=== PATIENT | female | born 2000 | race Caucasian/White ===

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

== ENCOUNTER 2022-02-08 04:10 | Emergency (ER) | payer OTHER ==
--- OUTSIDE RECORDS SUMMARY | 2022-02-08 04:13 | XMS REPORT | Continuity of Care Document ---
:2000 Author Organization [facility] t Address [address] [place] [address] Care Team Providers Name Role Phone Pcp, Patient Does Not Have A Primary Care Physician [phone] [id number] LYNNETTE LAROSE Attending Clinician Unavailable Lab, Ang - Db Attending Clinician Unavailable Lynnette Larose MD Attending Clinician Doctor Unassigned, [place] Attending Clinician Unavailable RENATA GUTIERREZ Attending Clinician Unavailable Pcp, Patient Does Not Have A Attending Clinician [phone] DEBO GARCIA Attending Clinician Unavailable LYNNETTE LAROSE Admitting Clinician Unavailable Payers Payer Name Policy Type Policy Number Effective Date Expiration Date [facility] [id number] 2021 PPO 00:00:00 Problems Condition Condition Condition Status Onset Resolution Last Treating Co mments Source Name Details Category Date Date Treatment Clinician Date Pelvic Pelvic Disease Active 2021-02 Univers pain pain 0-12 ity of 00:00: [address] Dysmenorrh Dysmenorrh Disease Active 2021-02 U nivers ea ea 0-12 ity of 00:00: [address] No known No known Disease Unive rs active active ity of problems problems [facility] Allergies, Adverse Reactions, Alerts Allergy Allergy Status Severity Reaction(s) Onset Inactive Treating Comm ents Source Name Type Date Date Clinician NO KNOWN Drug Active Univers ALLERGIE Class ity of S [facility] Social History Social Habit Start Date Stop Date Quantity Comments Source History [facility] University o f Alcohol Frequency [facility] History SDOH University o f Alcohol Std [place] [facility] History SDOH University o f Alcohol Binge [place] [facility] Exposure to 2022-01-19 2022-01-29 Not sure University [facility]-CoV-2 00:00:00 11:50:00 [place] [facility] (event[facility] Alcohol Comment 2021-07-17 2021-07-17 1-2x a month Univers ity of 00:00:00 00:00:00 [place] [facility] Alcohol intake 2017-12-16 2017-12-[address] [facility] 00:[facility] 00:00:00 non-drinker of Medical Ce nter alcohol (finding) Tobacco use and 2017-12-04 2017-12-[address] [facility] exposure 00[facility]00:00 00:00:00 [facility] Sex Assigned At [address] [facility] 00:00[facility]00 00[facility]00 [facility] Center Smoking Status Start Date Stop Date Source Never smoked tobacco [facility] Medications Ordered Filled Start Stop Current Ordering Indication Dosage Frequency Signature Comments Components Source Medication Medication Date Date Medication? Clinician (SIG) Name Name escitalopra 2021-02 Yes 20mg Take 20 mg Univers m oxalate 0-11 by mouth ity of 20 mg 09:32: in the [place] tablet 12 morning. Medical Branch escitalopra 2021-02 Yes 20mg Take 20 mg Univers m oxalate 0-11 by mouth ity of 20 mg 09:32: in the [place] tablet 12 morning. Medical Branch escitalopra 2021-02 Yes 20mg Take 20 mg Univers m oxalate 0-11 by mouth ity of 20 mg 09:32: in the [place] tablet 12 morning. Medical Branch escitalopra 2021-02 Yes 20mg Take 20 mg Univers m oxalate 0-11 by mouth ity of 20 mg 09:32: in the [place] tablet 12 morning. Medical Branch escitalopra 2021-02 Yes 20mg Take 20 mg Univers m oxalate 0-11 by mouth ity of 20 mg 09:32: in the [place] tablet 12 morning. Medical Branch escitalopra 2021-02 Yes 20mg Take 20 mg Univers m oxalate 0-11 by mouth ity of 20 mg 09:32: in the [place] tablet 12 morning. Medical Branch escitalopra 2021-02- 20mg Take 20 mg Univers m oxalate 0-11 10-11 by mouth ity o f 10 mg 09:32: 00:00 in the [place] tablet 12 :00 morning. Medical Branch escitalopra 2021-02- No 20mg Take 20 mg Univers m oxalate 0-11 10-11 by mouth ity o f 10 mg 09:32: 00:00 in the [place] tablet 12 :00 morning. Medical Branch escitalopra 2021-0 Yes 10mg Take 10 mg Univers m oxalate 2-25 by mouth ity of 10 mg 19:03: daily. [place] tablet 48 [facility] escitalopra 0 Yes 10mg Take 10 mg Univers m oxalate 2-25 by mouth ity of 10 mg 19:03: daily. [place] tablet 48 [facility] escitalopra Yes 10mg Take 10 mg Univers m oxalate 2-25 by mouth ity of 10 mg 19:03: daily. [place] tablet 48 [facility] escitalopra 0 Yes 10mg Take 10 mg Univers m oxalate 2-25 by mouth ity of 10 mg 19:03: daily. [place] tablet 48 [facility] escitalopra 0 Yes 10mg Take 10 mg Univers m oxalate 2-25 by mouth ity of 10 mg 19:03: daily. [place] tablet 48 [facility] escitalopra 0 Yes 10mg Take 10 mg Univers m oxalate 2-25 by mouth ity of 10 mg 19:03: daily. [address] Vital Signs Vital Name Observation Time Observation Value Comments Source Systolic blood 2021-11-27 14:29:00 112 mm[Hg] Univer sity of pressure [facility] Diastolic blood 2021-11-27 14:29:00 77 mm[Hg] Unive rsity of pressure [facility] Heart rate 2021-11-27 14:29:00 81 /min [facility] Body temperature 2021-11-27 14:29:00 36.72 [facility] Respiratory rate 2021-11-27 14:29:00 16 /min [facility] Body height 2021-11-27 14:29:00 162.6 cm Universi ty [facility] Body weight 2021-11-27 14:29:00 74.163 kg [facility] BMI 2021-11-27 14:29:00 28.06 kg/m2 Universi ty of [facility] Body mass index 2021-11-27 14:29:00 90.74 % Unive rsity of (BMI) [Percentile] [place] [facility] ical Per age and sex Branch Oxygen saturation in 2021-11-27 14:29:00 98 /min [facility] Arterial blood by [facility] Pulse oximetry Branch Systolic blood 2021-07-17 15:51:00 112 mm[Hg] Univer sity of pressure [facility] Diastolic blood 2021-07-17 15:51:00 75 mm[Hg] Unive rsity of pressure [facility] Heart rate 2021-07-17 15:51:00 78 /min Universi ty of [facility] Body temperature 2021-07-17 15:51:00 36.89 Minnie [facility] Respiratory rate 2021-07-17 15:51:00 18 /min [facility] Body height 2021-07-17 15:51:00 162.6 cm Universi ty [facility] Body weight 2021-07-17 15:51:00 70.308 kg Universi ty of [facility] BMI 2021-07-17 15:51:00 26.61 kg/m2 Universi ty [facility] Body mass index 2021-07-17 15:51:00 87.40 % Unive rsity of (BMI) [Percentile] [place] [facility] ical Per age and sex Branch Procedures Procedure Date / Time Performing Clinician Source Performed EXTERNAL PROVIDER 2021-09-28 05:01:00 Doctor Unassigned, No [facility] RECORDS Name Medical Branch US PELVIS COMPLETE WITH 2021-08-01 20:09:36 Lynnette Larose [facility] TRANSVAGINAL [facility] ASSIGNMENT OF BENEFITS 2021-08-01 19:09:06 Doctor Unassigned, No [facility] Encounters Start End Encounter Admission Attending Care Care Encounter Source Date/Time Date/Time Type Type Clinicians Facility Department ID 2022-02-06 2022-02-06 Outpatient Gerhard LAROSE [facility] [id number] Univers 13:30:00 13:30:00 LYNNETTE matta of [facility] 2022-02-01 2022-02-01 Outpatient R AD, [facility] [id number] Univers 14:30:00 14:30:00 LYNNETTE ehsan [facility] 2022-01-29 2022-01-29 [facility], Ang - Db [facility] 1.2.840.1 [id number] Univers 12:00:00 12:15:00 Visit Adum, Lynnette BANEGAS 350.1.13.10 ity [facility] [id number] Arya as ?BLEA [id number] [address] OFFICE [facility] 2022-01-29 2022-01-29 Outpatient R AD, [facility] [id number] Univers 12:00:00 12:00:00 LYNNETTE matta [facility] 2022-01-29 2022-01-29 [facility] [id number] Univers 00:00:00 00:00:00 (Out) Lynnette BANEGAS 350.1.13.10 i ty [facility] 4.2.7.2.686 Arya as ?BLEA [id number] [address] OFFICE [facility] 2022-01-29 2022-01-29 Telephone [facility] [id number] Univers 00:00:00 00:00:00 Lynnette CARDENAS 350.1.13.10 i ty [id number] [id number] [address] 2022-01-28 2022-01-28 Telephone [facility] 1.2.840.114 [id number] Univers 00:00:00 00:00:00 Lynnette CARDENAS 350.1.13.10 i [place] [id number] [address] 2021-11-27 2021-11-27 Outpatient R ADUM, [facility] [id number] Univers 09:00:00 10:11:53 LYNNETTE matta [facility] 2021-11-27 2021-11-27 Office [facility] [id number] Univers 09:00:00 10:11:53 Visit Lynnette CARDENAS 350.1.13.10 i ty of [place] [facility] [id number] [facility] [address] 2021-09-28 2021-09-28 Orders Doctor IBETH [id number] Univers 00:00:00 00:00:00 Only Unassigned, SHYLA 350.1.13.10 ity of [place] [facility] 4.2.7.2.686 Arya as [id number] [facility] 009 Branch 2021-08-23 2021-08-23 Outpatient R RENATA GUTIERREZ [facility] [id number] Univers 13:00:00 13:00:00 ity [facility] 2021-08-22 2021-08-22 Outpatient R [facility] [id number] Univers 10:00:00 10:00:00 LYNNETTE matta [facility] 2021-08-10 2021-08-10 [place] [facility] [id number] Univers 00:00:00 00:00:00 Lynnette BERRIOS 350.1.13.10 ity of [place] 4.2.7.2.686 [facility] s [facility] [id number] Sd dical [address] 2021-08-01 2021-08-01 Outpatient R [facility] [id number] Univers 14:12:20 23:59:00 LYNNETTE itehsan [facility] 2021-08-01 2021-08-01 [facility] 1.2.840.114 [id number] Univers 14:00:00 23:59:00 Encounter Lynnette BERRIOS 350.1.13.10 [place] [id number] [facility] [address] 2021-08-01 2021-08-01 Orders Doctor IBETH 1.2.840.114 [id number] Univers 00:00:00 00:00:00 Only Unassigned, SHYLA 350.1.13.10 ity of [place] [facility] 4.2.7.2.686 Arya as [id number] [address] 2021-07-20 2021-07-20 Telephone Pcp, [facility] [id number] Univers 00:00:00 00:00:00 Patient YASH 350.1.13.10 i ty of Does Not [place] 4.2.7.2.686 Arya as Have A PROFESSIO [id number] Sd dic[address] 2021-07-17 2021-07-17 Outpatient R THUAN, [facility] [id number] Univers 10:30:00 11:45:55 LYNNETTE ity [facility] 2021-07-17 2021-07-17 Office [facility] 1.2.840.114 [id number] Univers 10:30:00 11:45:55 Visit Lynnette L YASH 350.1.13.10 it[place] of [place] [id number] [address] 2021-06-29 2021-06-29 Orders Doctor IBETH 1.2.840.114 [id number] Univers 00:00:00 00:00:00 Only Unassigned, SHYLA 350.1.13.10 ity of [place] [facility] 4.2.7.2.686 Arya as [id number] [address] 2021-04-13 2021-04-13 [facility] [id number] Univers 19:00:00 19:00:00 DEBO itehsan [facility] 2021-04-13 2021-04-13 Orders Doctor IBETH 1.2.840.114 [id number] Univers 00:00:00 00:00:00 Only Unassigned, SHYLA 350.1.13.10 ity of [place] [facility] 4.2.7.2.686 Arya as [id number] [address] 2021-04-13 2021-04-13 Letter Doctor IBETH 1.2.840.114 [id number] Univers 00:00:00 00:00:00 (Out) Unassigned, SHYLA 350.1.13.10 ity of [place] [facility] 4.2.7.2.686 Arya as [id number] [place] [address] Branch 2020-02-23 2020-02-23 Outpatient F[facility]OVID [facility] [id number] [facility] 00:00:00 00:00:00 [id number] Results This patient has no known results.
[2022-02-08] MEDS ORDERED: PROMETH/COD 6.25/10MG SYRUP 5ML ONE (04:45)
[2022-02-08 05:33] LABS: SARS-COV-2 RT PCR NEGATIVE (NEGATIVE)
--- NOTE | 2022-02-08 05:40 | EDPHYS ---
Physician Documentation [facility] Name: Naima Lyon Age: 21 yrs Sex: Female : 2000 Arrival Date: 02/08/2022 Time: 04:18 Bed 18 Private MD: ED Physician Tanya Cleveland HPI: 02/08 04:40 This 21 yrs old Female presents to ER via Ambulatory with complaints of Cough, Mold sd2 Exposure. 04:40 21 yo F presents with CC of dry cough for 1 week. Reports post-tussive emesis due to sd2 episodes of coughing and unable to sleep. Denies fever, rhinorrhea, diarrhea or recent sick contacts. Also reports mold exposure earlier this year at a house they were living in for approximately 3 months. Pt did not have cough or issues then and they moved out into a camper but then moved back into an apartment with the same furniture although it was cleaned and she states the cough is worse when she is at the apartment. Denies CP, SOB or chance of .. Historical: - Home Meds: 05:05 Lexapro Oral once daily [Active]; kd3 - PMHx: 05:05 Anxiety; kd3 - Immunization history:: Adult Immunizations up to date. - Social history:: Smoking status: unknown. ROS: 04:40 Constitutional: Negative for fever, chills, and weight loss, Eyes: Negative for injury, sd2 pain, redness, and discharge, ENT: Negative for injury, pain, and discharge, Cardiovascular: Negative for chest pain, palpitations, and edema, Respiratory: Negative for shortness of breath, wheezing. Positive for cough. Abdomen/GI: Negative for abdominal pain, nausea, vomiting, diarrhea. Positive for post-tussive emesis MS/Extremity: Negative for injury and deformity, Skin: Negative for injury, rash, and discoloration, Neuro: Negative for headache, numbness and tingling. Exam: 04:40 Constitutional: This is a well developed, well nourished patient who is awake, alert, sd2 and in no acute distress. Head/Face: Normocephalic, atraumatic. Eyes: EOMI, normal conjunctiva bilaterally Chest/axilla: Normal chest wall appearance and motion. Nontender with no deformity. Cardiovascular: Regular rate and rhythm with a normal S1 and S2. No gallops, murmurs, or rubs. 2+ distal pulses. Respiratory: Lungs have equal breath sounds bilaterally, clear to auscultation and percussion. No rales, rhonchi or wheezes noted. No increased work of breathing, no retractions or nasal flaring. Abdomen/GI: Soft, non-tender, with normal bowel sounds. No guarding or rebound. No evidence of tenderness throughout. Skin: Warm, dry with normal turgor. Normal color with no rashes, no lesions, and no evidence of cellulitis. MS/ Extremity: Pulses equal, no cyanosis. Neurovascular intact. Full, normal range of motion. Ambulatory without difficulty. Psych: Awake, alert, with orientation to person, place and time. Behavior, mood, and affect are within normal limits. Vital Signs: 04:31 BP 113 / 94; Pulse 89; Resp 18; Temp 99(O); Pulse Ox 100% ; Weight 72.57 kg; Height 5 pf1 ft. 4 in. (162.56 cm); Pain 0/10; 04:35 BP 121 / 73; Pulse 98; Resp 17; Pulse Ox 100% on R/A; kd3 05:07 BP 107 / 70; Pulse 93; Resp 19; Pulse Ox 98% on R/A; kd3 04:31 Body Mass Index 27.46 (72.57 kg, 162.56 cm) pf1 MDM: 04:28 Patient medically screened. sd2 04:40 Differential Diagnosis: Other Differential diagnosis includes but is not limited to: sd2 Viral URI, acute otitis media, acute otitis externa, pneumonia, UTI, COVID, flu, herpangina among others. Data reviewed: vital signs, nurses notes. 05:38 Data reviewed: lab test result(s). Counseling: I had a detailed discussion with the sd2 patient and/or guardian regarding: the historical points, exam findings, and any diagnostic results supporting the discharge/admit diagnosis, lab results, the need for outpatient follow up, to return to the emergency department if symptoms worsen or persist or if there are any questions or concerns that arise at home. Medical screen evaluation completed. [facility] emergency medical condition absent. ED course: Labs reviewed. Viral testing negative. CXR with no acute process. No respiratory distress or hypoxia. Advised of continued supportive care for symptoms. Suspect viral URI. Verbalizes understanding of discharge plan and strict return precautions. . 02/08 04:39 Order name: COVID-19/FLU A+B; Complete Time: 05:35 sd2 02/08 04:39 Order name: XRAY Chest (1 view) sd2 Administered Medications: 04:45 Drug: Phenergan (promethazine) -Codeine Liquid (6.25mg - 10mg / 5mL) 10 ml Route: PO; kd3 05:44 Follow up: Response: No adverse reaction as6 Disposition Summary: 02/08/22 05:39 Discharge Ordered Location: Home sd2 Problem: new sd2 Symptoms: have improved sd2 Condition: Stable sd2 Diagnosis - Cough sd2 Followup: sd2 - With: Private Physician - When: 2 - 3 days - Reason: Worsening of condition, Recheck today's complaints, Continuance of care Discharge Instructions: - Discharge Summary Sheet sd2 - Cough, Adult sd2 Forms: - Medication Reconciliation Form sd2 - Thank You Letter sd2 - Antibiotic Education sd2 - Prescription Opioid Use sd2 Prescriptions: - Guaifenesin AC 10-100 mg/5 mL Oral Liquid - take 10 milliliters by ORAL route every 4 hours As needed; 240 milliliter; sd2 Refills: 0, Product Selection Permitted Signatures: Dispatcher [employer] Concepcion Cagle RN RN kd3 Tanya Cleveland MD MD sd2 Sivakumar Stevenson RN as6
--- NOTE | 2022-02-08 05:40 | ER ---
[facility] Name: Naima Lyon Age: 21 yrs Sex: Female : 2000 Arrival Date: 02/08/2022 Time: 04:18 Bed 18 Private MD: Diagnosis: Cough Presentation: 02/08 04:31 Chief complaint: Patient states: Patient C/O clear productive cough,onset 1 week. pf1 Patient stated has been exposed to toxic black mold in a house she bought in February 2021. Patient stated moved out of the house around August. Coronavirus screen: Client denies travel out of the [place] in the last 14 days. Client presents with at least one sign or symptom that may indicate coronavirus-19. Standard/surgical mask placed on the client. Ebola Screen: Patient negative for fever greater than or equal to 101.5 degrees Fahrenheit, and additional compatible Ebola Virus Disease symptoms. Initial Sepsis Screen: Does the patient meet any 2 criteria? HR > 90 bpm. No. Patient's initial sepsis screen is negative. Does the patient have a suspected source of infection? No. Patient's initial sepsis screen is negative. Risk Assessment: Do you want to hurt yourself or someone else? Patient reports no desire to harm self or others. Onset of symptoms was February 01, 2022. 04:31 Method Of Arrival: Ambulatory pf1 04:31 Acuity: ALEX 3 pf1 04:35 Ebola Screen: No symptoms or risks identified at this time. Initial Sepsis Screen: Does kd3 the patient meet any 2 criteria? No. Patient's initial sepsis screen is negative. Does the patient have a suspected source of infection? No. Patient's initial sepsis screen is negative. Risk Assessment: Do you want to hurt yourself or someone else? Patient reports no desire to harm self or others. Onset of symptoms was February 08, 2022. 04:35 Method Of Arrival: Ambulatory kd3 04:35 Acuity: ALEX 4 kd3 Historical: - Home Meds: 05:05 Lexapro Oral once daily [Active]; kd3 - PMHx: 05:05 Anxiety; kd3 - Immunization history:: Adult Immunizations up to date. - Social history:: Smoking status: unknown. Screenin:34 [facility] ED Fall Risk Assessment (Adult) Score/Fall Risk Level 0 - 2 = Low Risk. Abuse as6 screen: Denies threats or abuse. Denies injuries from another. Nutritional screening: No deficits noted. Tuberculosis screening: No symptoms or risk factors identified. Assessment: 04:32 General: Appears in no apparent distress. Behavior is calm, cooperative. Pain: as6 Complains of pain in neck. Neuro: Level of Consciousness is awake, alert, obeys commands, Oriented to person, place, time, situation. Cardiovascular: Capillary refill < 3 seconds Patient's skin is warm and dry. Respiratory: Reports cough that is Respiratory effort is even, unlabored, Respiratory pattern is regular, symmetrical. 05:05 Reassessment: No changes from previously documented assessment. Patient and/or family kd3 updated on plan of care and expected duration. Pain level reassessed. Patient is alert, oriented x 3, equal unlabored respirations, skin warm/dry/pink. Vital Signs: 04:31 BP 113 / 94; Pulse 89; Resp 18; Temp 99(O); Pulse Ox 100% ; Weight 72.57 kg; Height 5 pf1 ft. 4 in. (162.56 cm); Pain 0/10; 04:35 BP 121 / 73; Pulse 98; Resp 17; Pulse Ox 100% on R/A; kd3 05:07 BP 107 / 70; Pulse 93; Resp 19; Pulse Ox 98% on R/A; kd3 04:31 Body Mass Index 27.46 (72.57 kg, 162.56 cm) pf1 ED Course: 04:18 Patient arrived in ED. ja2 04:25 Tanya Cleveland MD is Attending Physician. sd2 04:29 Sivakumar Stevenson, DARREN is Primary Nurse. as6 04:34 Bed in low position. Call light in reach. Side rails up X 1. as6 04:35 Triage completed. kd3 04:45 COVID-19/FLU A+B Sent. kd3 04:58 XRAY Chest (1 view) In Process Unspecified. EDMS 05:05 Arm band placed on right wrist. kd3 05:44 No provider procedures requiring assistance completed. Patient did not have IV access as6 during this emergency room visit. Administered Medications: 04:45 Drug: Phenergan (promethazine) -Codeine Liquid (6.25mg - 10mg / 5mL) 10 ml Route: PO; kd3 05:44 Follow up: Response: No adverse reaction as6 Medication: 05:06 VIS not applicable for this client. kd3 Outcome: 05:39 Discharge ordered by . sd2 05:47 Discharged to home with significant other. as6 05:47 Condition: stable 05:47 Discharge instructions given to patient, Instructed on discharge instructions, follow up and referral plans. medication usage, Demonstrated understanding of instructions, follow-up care, medications, Prescriptions given X 1. 05:47 Patient left the ED. as6 Signatures: Dispatcher [employer] EDMS Thuy Montez Sivakumar Bruno, RN RN as6 Concepcion Biggs RN RN kd3 Tanya Cleveland MD MD sd2 Sandra ely RN RN pf1
[2022-02-08 05:53] VITALS: TEMP 99
[2022-02-08 05:55] VITALS: BP 107/70; O2SAT 98
--- NOTE | 2022-02-08 09:32 | RAD REPORT ---
EXAM DESCRIPTION: RAD - Chest Single View - 02/08/2022 4:57 am CLINICAL HISTORY: 21 years Female COUGH COMPARISON: None FINDINGS: Lung volumes adequate. Cardiac silhouette is normal. No pneumothorax. No large pleural effusion. No focal consolidation. No acute bony finding. IMPRESSION: No acute cardiopulmonary findings. Electronically signed by: Jordyn Don MD 02/08/2022 5:09 AM [employer] Due to temporary technical issues with the PACS/Fluency reporting system, reports are being signed by the in house radiologists without review as a courtesy to insure prompt reporting. The interpreting radiologist is fully responsible for the content of the report.
== END 2022-02-08 05:47 | disposition home or self-care (01) ==
LOC: ER 04:10
DX: R05.9 Cough, unspecified (principal); Z20.822 Contact with and (suspected) exposure to COVID-19
CPT/HCPCS: 0240U; 71045; 99284